=== PATIENT | female | born 1930 | race African-American/Black ===

== ENCOUNTER 2016-10-28 15:21 | Inpatient (IN) | payer BC, MEDICAID ==
[~2016-10-28] VITALS: Ht 157.5 cm; Wt 42.2 kg
[2016-10-28] MEDS ORDERED: SODIUM CHLORIDE 0.9% 500 ML IV ONE (15:45)
[2016-10-28 16:20] LABS: BASOPHILS % 0.5 % (0.0-2.0); EOSINOPHILS % 1.6 % (0.0-5.0); HEMATOCRIT. 30.2 % (36.0-48.0); HEMOGLOBIN. 10.1 g/dL (12.0-16.0); LYMPHOCYTES % 29.2 % (20.0-50.0); MEAN CORPUSCULAR VOLUME 89.8 fL (81.0-99.0); MONOCYTES % 10.3 % (2.0-8.0); NEUTROPHILS % 58.4 % (40.0-76.0); PLATELET 235 x1000/uL (130-400); RED BLOOD CELL COUNT 3.36 mill/uL (4.2-5.4); RED CELL DISTRIBUTION WIDTH 13.6 % (11.6-14.6)
[2016-10-28 16:23] LABS: CHLORIDE 103 mEq/L (98-107)
[2016-10-28 16:24] LABS: PROTHROMBIN TIME 10.5 sec
[2016-10-28 16:30] LABS: CARBON DIOXIDE 27 mEq/L (21-32); ETHANOL BLOOD < 10 mg/dL
[2016-10-28 16:34] LABS: TROPONIN I < 0.02 ng/mL (0.00-0.04)
[2016-10-28 17:34] LABS: CLARITY URINE CLEAR (CLEAR); COLOR URINE YELLOW (YELLOW); KETONES URINE NEGATIVE (NEGATIVE); LEUKOCYTE ESTERASE URINE TRACE (NEGATIVE); NITRITE URINE NEGATIVE (NEGATIVE); OCCULT BLOOD URINE NEGATIVE (NEGATIVE); PH URINE 5.5 (4.5-8.0); PROTEIN URINE 1+ (NEGATIVE); SPECIFIC GRAVITY URINE 1.018 (1.005-1.030); UROBILINOGEN URINE 0.2 E.U./dL (0.2-1.0)
[2016-10-28 17:49] LABS: *AMPHETAMINES SCREEN URINE NEGATIVE (NEGATIVE); *BARBITURATES SCREEN URINE NEGATIVE (NEGATIVE); *BENZODIAZEPINES SCREEN URINE NEGATIVE (NEGATIVE); *COCAINE SCREEN URINE NEGATIVE (NEGATIVE); CANNABINOID URINE SCREEN NEGATIVE (NEGATIVE); METHADONE URINE SCREEN NEGATIVE (NEGATIVE); OPIATES URINE SCREEN NEGATIVE (NEGATIVE); PHENCYCLIDINE URINE SCREEN NEGATIVE (NEGATIVE)
[2016-10-28] MEDS ORDERED: AMLO10TA80 PO (22:52)
[2016-10-28] MEDS ORDERED: ASPI-1159 PO (23:02)
[2016-10-28] MEDS ORDERED: MELO-106 PO (23:02)
[2016-10-28] MEDS ORDERED: LATA2.5D2 EACHEYE (23:02)
[2016-10-28] MEDS ORDERED: CLOP75TA33 PO (23:02)
[2016-10-28] MEDS ORDERED: CLON0.2T PO (23:02)
[2016-10-28] MEDS ORDERED: FERR-63 PO (23:02)
[2016-10-28] MEDS ORDERED: FOLI-43 PO (23:02)
[2016-10-28] MEDS ORDERED: TIMO15DR12 EACHEYE (23:02)
[2016-10-28] MEDS ORDERED: ISOS60TA4 PO (23:02)
[2016-10-28] MEDS ORDERED: TRAV2.5D EACHEYE (23:02)
[2016-10-28] MEDS ORDERED: DOCU-150 PO (23:02)
[2016-10-28] MEDS ORDERED: QUET25TA PO (23:02)
[2016-10-28] MEDS ORDERED: SPIR25TA4 PO (23:02)
[2016-10-28] MEDS ORDERED: MEMA10TA2 PO (23:02)
[2016-10-28] MEDS ORDERED: ACETAMINOPHEN 325MG TABLET PO PRN (23:45)
[2016-10-28] MEDS ORDERED: NA PHOS,M-B/NA PHOS,DI-BA ENEMA 118ML PR PRN (23:45)
[2016-10-28] MEDS ORDERED: ONDANSETRON HCL 4MG/2ML VIAL IV PRN (23:45)
[2016-10-28] MEDS ORDERED: ACETAMINOPHEN 650MG SUPP PR PRN (23:45)
[2016-10-28] MEDS ORDERED: MAGNESIUM/ALUMINUM HYDROXIDE/SIMETHICONE 30ML UDC PO PRN (23:45)
[2016-10-28] MEDS ORDERED: IPRATROPIUM/ALBUTEROL 0.5-3(2.5)MG/3ML NEB INH PRN (23:45)
[2016-10-28] MEDS ORDERED: ACETAMINOPHEN 650MG/20.3ML UDC GT PRN (23:45)
[2016-10-29] MEDS: SODIUM CHLORIDE 0.9% INJ 3ML FLUSH IVF SCH ×3 (06:18→20:17)
[2016-10-29 07:03] LABS: BASOPHILS % 0.6 % (0.0-2.0); EOSINOPHILS % 2.2 % (0.0-5.0); HEMATOCRIT. 32.4 % (36.0-48.0); LYMPHOCYTES % 41.7 % (20.0-50.0); MEAN CORPUSCULAR HEMOGLOBIN 30.4 pg (28.0-32.0); MEAN CORPUSCULAR VOLUME 89.8 fL (81.0-99.0); MONOCYTES % 9.7 % (2.0-8.0); NEUTROPHILS % 45.8 % (40.0-76.0); PLATELET 273 x1000/uL (130-400); RED BLOOD CELL COUNT 3.61 mill/uL (4.2-5.4)
[2016-10-29] MEDS: CLONIDINE 0.1MG TABLET PO PRN ×2 (07:06→09:18)
[2016-10-29 07:42] LABS: CARBON DIOXIDE 26 mEq/L (21-32); CHLORIDE 104 mEq/L (98-107); CREATINE KINASE 44 IU/L (26-192); HDL CHOLESTEROL 65 mg/dL (40-59); LDL CHOLESTEROL 82 mg/dL (5-100); TROPONIN I < 0.02 ng/mL (0.00-0.04)
[2016-10-29] MEDS: HYDROCODONE/ACETAMINOPHEN 5/325MG TABLET PO PRN ×2 (09:19→15:40)
[2016-10-29 11:15] LABS: T4 FREE 1.15 ng/dL (0.76-1.46)
[2016-10-29] MEDS ORDERED: IOHEXOL-350 100 ML BOTTLE ONE (13:05)
[2016-10-29] MEDS ORDERED: SODIUM CHLORIDE 0.9% 10ML VIAL ONE (13:05)
[2016-10-29] MEDS: HYDRALAZINE HCL 50MG TABLET PO SCH ×2 (15:40→20:17)
[2016-10-29] MEDS: METOPROLOL TARTRATE 50MG TABLET PO SCH ×2 (15:41→20:16)
[2016-10-29 16:10] LABS: CREATINE KINASE 46 IU/L (26-192); CREATINE KINASE MB FRACTION 0.6 ng/mL (0.5-3.6); TROPONIN I < 0.02 ng/mL (0.00-0.04)
[2016-10-29] MEDS: PREDNISONE 20MG TABLET PO SCH (17:21)
[2016-10-30] MEDS ORDERED: ENOXAPARIN 40MG/0.4ML SYR SUBCUT SCH (01:00)
[2016-10-30] MEDS: SODIUM CHLORIDE 0.9% INJ 3ML FLUSH IVF SCH ×3 (05:53→21:01)
[2016-10-30] MEDS: HYDRALAZINE HCL 50MG TABLET PO SCH ×3 (05:57→21:00)
[2016-10-30] MEDS: PREDNISONE 20MG TABLET PO SCH (08:53)
[2016-10-30] MEDS: METOPROLOL TARTRATE 50MG TABLET PO SCH (08:53)
[2016-10-30] MEDS ORDERED: APIXABAN 2.5 MG TABLET PO SCH (11:00)
[2016-10-30] MEDS: HYDROCODONE/ACETAMINOPHEN 5/325MG TABLET PO PRN (14:32)
[2016-10-30] MEDS ORDERED: IOHEXOL-300 50 ML BOTTLE IV ONE (14:38)
[2016-10-30] MEDS ORDERED: IOHEXOL-300 100 ML BOTTLE ONE (14:38)
[2016-10-30] MEDS ORDERED: LIDOCAINE HCL 1% 20ML VIAL (Pyxis) INJ ONE (14:38)
[2016-10-30] MEDS ORDERED: SODIUM BICARBONATE 4% (2.4MEQ) 5ML VIAL IV ONE (14:38)
[2016-10-30] MEDS ORDERED: CEFAZOLIN 1000MG PREMIX 50 ML IV ONE ×2 (14:43→16:30)
[2016-10-30] MEDS ORDERED: FENTANYL CITRATE/PF 50MCG/ML 2ML VIAL ONE (16:03)
[2016-10-30] MEDS ORDERED: FENTANYL CITRATE/PF 50MCG/ML 2ML VIAL IV NR (16:30)
[2016-10-30] MEDS: CLONIDINE 0.1MG TABLET PO PRN (17:10)
[2016-10-30] MEDS: APIXABAN 5 MG TABLET PO SCH (21:01)
[2016-10-30] MEDS: METOPROLOL TARTRATE 25MG TABLET PO SCH (21:01)
[2016-10-31] MEDS: SODIUM CHLORIDE 0.9% INJ 3ML FLUSH IVF SCH ×2 (05:58→14:38)
[2016-10-31] MEDS: HYDRALAZINE HCL 50MG TABLET PO SCH ×2 (05:58→14:38)
[2016-10-31] MEDS: METOPROLOL TARTRATE 25MG TABLET PO SCH (09:19)
[2016-10-31] MEDS: APIXABAN 5 MG TABLET PO SCH (09:19)
[2016-10-31] MEDS: PREDNISONE 20MG TABLET PO SCH (09:20)
[2016-10-31 16:00] VITALS: BP 139/49
== END 2016-10-31 17:00 | disposition home or self-care (01) | DRG 252 ==
LOC: ER 16:01 → 7WST 16:06 → EDBEDREQ 18:52 → CANRESERV 19:19 → ENRESERV 19:19 → ER 20:47
PROVIDERS: ADMIT Family Medicine; ATTEND Internal Medicine
PROC: 06H03DZ Insertion of Intraluminal Device into Inferior Vena Cava, Percutaneous Approach (ICD-10-PCS; principal; 2016-10-31)
DX: I82.432 Acute embolism and thrombosis of left popliteal vein (principal); I26.99 Other pulmonary embolism without acute cor pulmonale; J44.1 Chronic obstructive pulmonary disease with (acute) exacerbation; I25.10 Atherosclerotic heart disease of native coronary artery without angina pectoris; E11.9 Type 2 diabetes mellitus without complications; E78.5 Hyperlipidemia, unspecified; E86.0 Dehydration; I10 Essential (primary) hypertension; N28.9 Disorder of kidney and ureter, unspecified; Z86.73 Personal history of transient ischemic attack (TIA), and cerebral infarction without residual deficits; I25.2 Old myocardial infarction; Z88.0 Allergy status to penicillin; Z79.899 Other long term (current) drug therapy; Z79.82 Long term (current) use of aspirin
CPT/HCPCS: 36415; 37191; 70450; 71010; 71275; 80053; 80061; 80305; 81001; 82550; 82553; 82962; 83036; 83880; 84439; 84443; 84484; 85025; 85379; 85610; 93005; 93306; 93970; 96360; 96361; 99285; A4216; C1769; C1880; G0482; J0690; J1644; J1650; J3010; J3490; J7040; J7512; Q9967

== ENCOUNTER 2018-08-06 09:59 | Emergency (ER) | payer BC, MEDICAID ==
[~2018-08-06] VITALS: Ht 160 cm; Wt 42.0 kg
[~2018-08-06 09:59] MED LIST: AMLO10TA80 PO; ASPI-1159 PO; CLON0.2T PO; CLOP75TA33 PO; DOCU-150 PO; FERR-63 PO; FOLI-43 PO; ISOS60TA4 PO; LATA2.5D2 EACHEYE; MELO-106 PO; MEMA10TA2 PO; QUET25TA PO; SPIR25TA6 PO; TIMO15DR12 EACHEYE; TRAV2.5D EACHEYE
[2018-08-06] MEDS ORDERED: ACETAMINOPHEN 325MG TABLET PO NR (11:30)
[2018-08-06 12:41] VITALS: BP 157/68
== END 2018-08-06 13:01 | disposition home or self-care (01) ==
LOC: ER 09:59
DX: S00.12XA Contusion of left eyelid and periocular area, initial encounter (principal); S69.92XA Unspecified injury of left wrist, hand and finger(s), initial encounter; H11.32 Conjunctival hemorrhage, left eye; G30.9 Alzheimer's disease, unspecified; F02.80 Dementia in other diseases classified elsewhere, unspecified severity, without behavioral disturbance, psychotic disturbance, mood disturbance, and anxiety; I11.9 Hypertensive heart disease without heart failure; E78.00 Pure hypercholesterolemia, unspecified; Z86.73 Personal history of transient ischemic attack (TIA), and cerebral infarction without residual deficits; Z87.891 Personal history of nicotine dependence; Z90.710 Acquired absence of both cervix and uterus; Z79.82 Long term (current) use of aspirin; Z79.899 Other long term (current) drug therapy; Z88.0 Allergy status to penicillin; Z91.041 Radiographic dye allergy status; Z91.018 Allergy to other foods; W18.39XA Other fall on same level, initial encounter; Y93.89 Activity, other specified; Y92.090 Kitchen in other non-institutional residence as the place of occurrence of the external cause; Y99.8 Other external cause status
CPT/HCPCS: 29125; 71045; 73110; 99284